=== PATIENT | male | born 1970 | race Caucasian/White ===

== ENCOUNTER 2021-02-26 00:21 | Emergency (ER) | payer OTHER ==
[2021-02-26 01:33] LABS: HEMOGLOBIN 15.5 gm/dl (14.0-17.5); RED BLOOD COUNT 4.92 M/UL (4.20-5.50)
[2021-02-26] MEDS ORDERED: HYDROCODON-ACE1 EAC4 PO (04:06)
[2021-02-26] MEDS ORDERED: FLOMAX 0.4 MG0.4 MG PO (04:09)
[2021-02-26] MEDS ORDERED: ZOFRAN ODT 4 MG4 MG PO (04:09)
== END 2021-02-26 04:15 | disposition home or self-care (01) ==
LOC: ER1 00:21
PROVIDERS: Physician Assistant
DX: N13.2 Hydronephrosis with renal and ureteral calculous obstruction (principal); N17.9 Acute kidney failure, unspecified
CPT/HCPCS: 80053; 81001; 83690; 85025; 87086; 99284; Q9967